=== PATIENT | female | born 1940 | race Caucasian/White ===

== ENCOUNTER 2022-08-19 06:51 | Inpatient (IN) | payer OTHER ==
[~2022-08-19] VITALS: Ht 170.2 cm; Wt 79.4 kg
[2022-08-19] MEDS ORDERED: CEFAZOLIN SOD 2 GM in D5W 50 ML IV ONE (07:15)
[2022-08-19] MEDS ORDERED: METO25TA3 PO (09:30)
[2022-08-19] MEDS ORDERED: WARF3TAB59 PO (09:30)
[2022-08-19] MEDS ORDERED: ACET325T PO (09:30)
[2022-08-19] MEDS ORDERED: LEVE500T99 PO (09:30)
[2022-08-19] MEDS ORDERED: LEVO25TA7 PO (09:30)
[2022-08-19] MEDS ORDERED: LISI40TA13 PO (09:30)
[2022-08-19] MEDS ORDERED: ACETAMINOPHEN I.V. 1000 MG 100 ML IV ONE (09:44)
[2022-08-19] MEDS ORDERED: METOCLOPRAMIDE HCL 10 MG/2 ML VIAL IVP PRN ×2 (10:30→11:30)
[2022-08-19] MEDS ORDERED: MIDAZOLAM HCL 5 MG/5 ML VIAL ONE (10:30)
[2022-08-19] MEDS ORDERED: KETOROLAC TROMETHAMINE 30 MG VIAL ONE (10:30)
[2022-08-19] MEDS ORDERED: fentaNYL CITRATE 250 MCG/5 ML AMP ONE (10:30)
[2022-08-19] MEDS ORDERED: BUPIVACAINE /EPINEPHRINE/PF 0.5% 30 ML VIAL INJ ONE (10:30)
[2022-08-19] MEDS ORDERED: NS 1000 ML IV.SOLN IV ONE (10:30)
[2022-08-19] MEDS ORDERED: LR 1,000 ML IV.SOLN IV ONE (10:30)
[2022-08-19] MEDS ORDERED: NALOXONE HCL 0.4 MG/ML AMP (NARCAN) IVP PRN ×3 (10:30)
[2022-08-19] MEDS ORDERED: BISACODYL 10 MG/SUPPOSITORY RC PRN (10:30)
[2022-08-19] MEDS ORDERED: LACTULOSE 20 GM/30 ML UDC PO PRN (10:30)
[2022-08-19] MEDS ORDERED: DIPHENHYDRAMINE HCL 25 MG CAPSULE PO PRN (10:30)
[2022-08-19] MEDS ORDERED: DESFLURANE 15 MIN GAS INH ONE (10:30)
[2022-08-19] MEDS ORDERED: VANCOMYCIN HCL 1000 MG/VIAL IV ONE (10:30)
[2022-08-19] MEDS ORDERED: NS IRRIG SOLN 1000 ML IR ONE (10:30)
[2022-08-19] MEDS ORDERED: ROCURONIUM BROMIDE 10 MG/ML (ZEMURON) ONE (10:30)
[2022-08-19] MEDS ORDERED: hydrALAZINE HCL 20 MG/ML VIAL ONE (10:30)
[2022-08-19] MEDS ORDERED: DEXAMETHASONE SOD PHOSPHATE 4 MG/ML VIAL ONE (10:30)
[2022-08-19] MEDS ORDERED: METOPROLOL TARTRATE 5 MG/5 ML VIAL ONE (10:30)
[2022-08-19] MEDS ORDERED: PROPOFOL 200MG/ 20ML VIAL (DIPRIVAN) IV ONE (10:30)
[2022-08-19] MEDS ORDERED: SUGAMMADEX SODIUM 200 MG/2 ML VIAL IV ONE (10:30)
[2022-08-19 10:57] LABS: PROTHROMBIN TIME 10.4 SECS (9.5-12.5)
[2022-08-19] MEDS ORDERED: oxyCODONE HCL 5 MG TABLET PO PRN (11:00)
[2022-08-19] MEDS ORDERED: traMADol HCL HCL 50 MG TABLET (ULTRAM) PO PRN (11:00)
[2022-08-19] MEDS ORDERED: LORATADINE 10 MG TABLET PO PRN (11:00)
[2022-08-19] MEDS ORDERED: HYDROmorphone 1 MG/ML INJ. CARTRIDGE IVP PRN ×5 (11:00→11:30)
[2022-08-19] MEDS ORDERED: MEPERIDINE HCL/PF 25 MG/ML DISP.SYRIN IVP PRN (11:30)
[2022-08-19] MEDS ORDERED: LABETALOL 100 MG/ 20ML VIAL IVP PRN (11:30)
[2022-08-19] MEDS ORDERED: ONDANSETRON HCL 4 MG/2 ML VIAL IVP PRN (11:45)
[2022-08-19] MEDS ORDERED: HYDROmorphone 2 MG/ML VIAL ONE (13:08)
[2022-08-19 15:56] LABS: BASOPHILS % (AUTO) 0.2 % (0.0-2.0); HEMATOCRIT 38.2 % (36-48); HEMOGLOBIN 12.4 g/dL (12.0-16.0); LYMPHOCYTES # (AUTO) 0.7 K/uL (1.0-5.5); LYMPHOCYTES % (AUTO) 4.9 % (20.5-51.5); MEAN CORPUSCULAR HEMOGLOBIN 27 pg (27-31); MEAN CORPUSCULAR HGB CONC 32 % (32-36); MEAN CORPUSCULAR VOLUME 84 fL (79.0-98.0); MONOCYTES # (AUTO) 0.2 K/uL (0.0-1.0); MONOCYTES % (AUTO) 1.2 % (1.7-9.3); NEUTROPHILS # (AUTO) 14.2 K/uL (1.8-7.7); NEUTROPHILS % (AUTO) 93.7 % (40.0-70.0); PLATELET COUNT (AUTO) 182 K/uL (130-430); RED BLOOD CELL COUNT(AUTO) 4.52 MIL/uL (4.2-6.2); RED CELL DISTRIBUTION WIDTH 17.5 % (9.0-15.0); WHITE BLOOD COUNT (AUTO) 15.2 K/uL (4.8-10.8)
[2022-08-19 17:14] LABS: ALANINE AMINOTRANSFERASE 18 U/L (12-78); ALBUMIN 3.2 g/dL (3.4-4.8); ANION GAP 7 (5-15); ASPARTATE AMINOTRANSFERASE 14 U/L (10-37); CALCIUM 8.2 mg/dL (8.4-11.0); CHLORIDE 106 mmol/L (98-107); CREATININE 0.94 mg/dL (0.55-1.30); GLUCOSE 194 mg/dL (70-99); TOTAL BILIRUBIN 0.2 mg/dL (0.0-1.0); UREA NITROGEN, BLOOD 16 mg/dL (8-21)
[2022-08-19 17:39] VITALS: BP_SYST 149
[2022-08-19 17:40] VITALS: BP_SYST 149
[2022-08-19] MEDS: LR 1,000 ML IV SCH (18:13)
[2022-08-19 20:00] VITALS: BP_SYST 134
[2022-08-19] MEDS: METOPROLOL SUCCINATE 25 MG TAB.SR.24H (TOPROL XL) PO SCH (21:28)
[2022-08-19] MEDS: SENNOSIDES/DOCUSATE SODIUM 1 TAB TABLET(SENOKOT-S) PO SCH (21:28)
[2022-08-19] MEDS: ceFAZolin SODIUM 2 GM in D5W 50 ML IV SCH (21:29)
[2022-08-19] MEDS: ACETAMINOPHEN 500 MG TABLET PO SCH (21:29)
[2022-08-20] MEDS: LR 1,000 ML IV SCH (00:23)
[2022-08-20 01:02] VITALS: BP_SYST 149
[2022-08-20] MEDS: KETOROLAC TROMETHAMINE 10 MG TABLET (TORADOL) PO SCH ×3 (01:31→17:29)
[2022-08-20 04:00] VITALS: BP_SYST 132
[2022-08-20] MEDS: ceFAZolin SODIUM 2 GM in D5W 50 ML IV SCH ×2 (04:23→13:26)
[2022-08-20 06:15] LABS: BASOPHILS % (AUTO) 0.1 % (0.0-2.0); HEMATOCRIT 36.7 % (36-48); LYMPHOCYTES % (AUTO) 7.6 % (20.5-51.5); MEAN CORPUSCULAR HEMOGLOBIN 28 pg (27-31); MEAN CORPUSCULAR HGB CONC 33 % (32-36); MEAN CORPUSCULAR VOLUME 85 fL (79.0-98.0); MONOCYTES # (AUTO) 1.1 K/uL (0.0-1.0); MONOCYTES % (AUTO) 8.3 % (1.7-9.3); PLATELET COUNT (AUTO) 179 K/uL (130-430); RED BLOOD CELL COUNT(AUTO) 4.31 MIL/uL (4.2-6.2); RED CELL DISTRIBUTION WIDTH 18.1 % (9.0-15.0); WHITE BLOOD COUNT (AUTO) 13.1 K/uL (4.8-10.8)
[2022-08-20] MEDS: ACETAMINOPHEN 500 MG TABLET PO SCH ×3 (06:35→21:10)
[2022-08-20 06:43] LABS: ANION GAP 10 (5-15); CALCIUM 8.8 mg/dL (8.4-11.0); CHLORIDE 104 mmol/L (98-107); CREATININE 0.99 mg/dL (0.55-1.30); GLUCOSE 131 mg/dL (70-99); UREA NITROGEN, BLOOD 16 mg/dL (8-21)
[2022-08-20] MEDS ORDERED: APIX2.5T PO (07:45)
[2022-08-20] MEDS ORDERED: OXYIR5 PO (07:45)
[2022-08-20] MEDS ORDERED: CEFA250S32 PO (07:45)
[2022-08-20] MEDS ORDERED: APIXABAN 2.5 MG TABLET PO SCH ×2 (09:00→21:00)
[2022-08-20] MEDS ORDERED: lisinopriL 20 MG TABLET PO SCH (09:00)
[2022-08-20] MEDS ORDERED: LEVOTHYROXINE SODIUM 0.025 MG TABLET PO SCH (09:00)
[2022-08-20] MEDS: oxyCODONE HCL 5 MG TABLET PO PRN ×2 (09:33→17:29)
[2022-08-20] MEDS: METOPROLOL SUCCINATE 25 MG TAB.SR.24H (TOPROL XL) PO SCH ×2 (09:33→21:00)
[2022-08-20] MEDS: SENNOSIDES/DOCUSATE SODIUM 1 TAB TABLET(SENOKOT-S) PO SCH ×2 (09:34→21:00)
[2022-08-20 11:22] VITALS: BP_SYST 140
--- NOTE | 2022-08-20 15:22 | NUR ---
PHYSICAL THERAPY CO-SIGN The Physical Therapy Progress Notes documented by Chief Transfer And Pumphouse Operator have been reviewed. Reviewed/Co-Signed by: James Friedman Documentation Done by:FAREED TIDWELL Addendum: 08/20/22 at 1522 by James Friedman PT Amended: Links added.
[2022-08-20 15:23] VITALS: BP_SYST 147
--- NOTE | 2022-08-20 18:51 | NUR ---
pt A/Ox4,vss,right knee with efren wrap dressing on dry and intact, ice polar machine on use,assisted pt up and urinated in [facility] c/o severe right knee pain with movement,give percocet 2 tab po as prn order for pain and continue toradol 10mg po per rountine meds order pt for d/c to [facility] ambulance ETA 8 pm,report called and given to nurse ricci in [facility] by phone,needs attended,safety maintained hourly rounds made,report endorsed to plant operator/shift supervisor nurse.
[2022-08-20 19:50] VITALS: BP_SYST 153
[2022-08-20 20:00] VITALS: BP_SYST 153
--- NOTE | 2022-08-20 21:10 | NUR ---
PATIENT AWAKE ALERT AND ORIENTED X4. VSS. AFEBRILE. RESPIRATIONS EVEN AND UNLABORED. PATIENT WAS SUPPOSE TO BE PICKED UP AT 1999 BY [facility]. [facility] CALLED FOR ETA AND THEY STATED THEY ARE [facility] AND WILL BE HERE IN 30-45 MINUTES. PATIENT UPDATED ON ETA AND ATTEMPTED TO ADMINISTER EVENING MEDS TO PATIENT. PATIENT STATES SHE DOES NOT WANT TO TAKE ANYMORE PILLS TODAY AND IS JUST READY TO LEAVE. EVENING MEDS NOT GIVEN. WAITING FOR AMBULANCE FOR TRANSFER TO REHAB. Bobby LANZA RN.
--- NOTE | 2022-08-20 21:35 | NUR ---
DISCHARGE INSTRUCTIONS AND PLAN OF CARE DISCUSSED WITH PATIENT. PATIENT VERBALIZED UNDERSTANDING. ALMAS MORIN.
--- NOTE | 2022-08-20 23:06 | NUR ---
AMBULANCE TRANSPORTATION HAS NOT ARRIVED YET. AMBULANCE SERVICE CALLED TO CHECK ETA. AMBULANCE SERVICE STATES THEY ARE STILL [facility] AND SOMEONE WILL BE HERE IN 30-45 MINUTES. WILL CALL DOUG RAMIREZ TO VERIFY PATIENT CAME STILL COME TO FACILITY AT THIS TIME OF NIGHT. Bobby LANZA RN.
--- NOTE | 2022-08-20 23:11 | NUR ---
SPOKE WITH NELSON MONTOYA AT [facility] AND NOTIFIED HER PATIENT HAS NOT BEEN PICKED UP DUE TO THE AMBULANCE SERVICES RUNNING [facility]. ASK NELSON MONTOYA IF IT WAS OK FOR THE PATIENT TO STILL COME THIS LATE AND SHE MAY NOT ARRIVED TO HER FACILITY TILL [phone]. NELSON MONTOYA STATES IT'S OK FOR PATIENT TO COME THIS LATE. PATIENT UPDATED ON STATUS OF AMBULANCE ETA. ALMAS MORIN.
--- NOTE | 2022-08-21 00:26 | NUR ---
AMBULANCE SERVICES ARRIVED. IV DISCONTINUED. PATIENT DISCHARGED TO [facility]IA [facility]. ALMAS MORIN.
== END 2022-08-21 00:20 | DRG 470 ==
LOC: SMU 06:51 → STU 17:15
PROVIDERS: ADMIT Student in an Organized Health Care Education/Training Program; ATTEND Student in an Organized Health Care Education/Training Program
PROC: 0SRC0J9 Replacement of Right Knee Joint with Synthetic Substitute, Cemented, Open Approach (ICD-10-PCS; principal; 2022-08-19 10:34)
DX: M17.11 Unilateral primary osteoarthritis, right knee (principal); E44.1 Mild protein-calorie malnutrition; I10 Essential (primary) hypertension; I48.91 Unspecified atrial fibrillation; E78.5 Hyperlipidemia, unspecified; Z20.822 Contact with and (suspected) exposure to COVID-19
CPT/HCPCS: 36415; 73560-TC; 80048; 80053; 83880; 85025; 85610-TC; 87081; 88305; 88311; 93005; 93306; 96379; 97110-GP; 97116-GP; 97163-GP; 97530-GP; C1713; C1776; G0378; J0131; J0360; J0690; J1100; J1170; J1885; J2250; J2405; J2704; J2765; J3010; J3370; J3490; J7030; J7060; J7120